=== PATIENT | male | born 1950 | race Caucasian/White ===

== ENCOUNTER 2024-09-10 11:14 | Emergency (ER) | payer MEDICARE, MEDICAID, SELFPAY ==
[2024-09-10 11:15] VITALS: BP 133/75; PULSE 94; TEMP 36.9; O2SAT 90; BMI 16.7
--- NOTE | 2024-09-10 11:23 | PC.NURSE ---
pt reports hx of COPD. chronic smoker. states no SOB, pt denies need or desire for oxygen application.
--- NOTE | 2024-09-10 11:27 | XR_ITS ---
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 Prior above-knee amputation and history of prostate cancer. COMPARISON: CT pelvis 03/19/2021 RIGHT HIP WITH AP PELVIS - 3 views AP view of the pelvis as well as AP and cross table lateral views of the right hip were obtained. There is osteopenia. There is prior amputation of the right lower extremity at the femoral shaft. No acute fracture or dislocation is identified. The hip joint spaces are symmetric. There is no significant arthritic disease. The SI joints are intact. There is levoscoliotic curvature and degenerative change at the lower imaged lumbar spine. Iliac artery stents are seen. The multiple hemostasis clips at the lower pelvis and in the groin region, greater on the right. A left lower quadrant colostomy is noted. XR/XR femur RT 2V IMPRESSION: NO ACUTE BONY INJURY. RIGHT FEMUR - 2 views AP and lateral views were obtained. There is osteopenia. Patient is status post amputation at the proximal to mid shaft of the femur. Chronic appearing irregularity is noted at the amputation site. No acute fracture or dislocation is identified. There is no prominent degenerative change. There are clips at the lower pelvis. There is an iliac artery stent. Atherosclerotic disease is seen. IMPRESSION: PRIOR ABOVE KNEE AMPUTATION. NO ACUTE BONY FINDINGS. Impression dictated by: Angela Clifford M.D. 09/10/2024 12:38 PM Dictation Location: [place] [address] Electronically authenticated by: [id number] Y Date: 09/10/2024 12:38
--- NOTE | 2024-09-10 11:27 | XR_ITS ---
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 Prior above-knee amputation and history of prostate cancer. COMPARISON: CT pelvis 03/19/2021 RIGHT HIP WITH AP PELVIS - 3 views AP view of the pelvis as well as AP and cross table lateral views of the right hip were obtained. There is osteopenia. There is prior amputation of the right lower extremity at the femoral shaft. No acute fracture or dislocation is identified. The hip joint spaces are symmetric. There is no significant arthritic disease. The SI joints are intact. There is levoscoliotic curvature and degenerative change at the lower imaged lumbar spine. Iliac artery stents are seen. The multiple hemostasis clips at the lower pelvis and in the groin region, greater on the right. A left lower quadrant colostomy is noted. XR/XR hip RT 2V w/ pelvis IMPRESSION: NO ACUTE BONY INJURY. RIGHT FEMUR - 2 views AP and lateral views were obtained. There is osteopenia. Patient is status post amputation at the proximal to mid shaft of the femur. Chronic appearing irregularity is noted at the amputation site. No acute fracture or dislocation is identified. There is no prominent degenerative change. There are clips at the lower pelvis. There is an iliac artery stent. Atherosclerotic disease is seen. IMPRESSION: PRIOR ABOVE KNEE AMPUTATION. NO ACUTE BONY FINDINGS. Impression dictated by: Angela Clifford M.D. 09/10/2024 12:38 PM Dictation Location: [place] [address] Electronically authenticated by: [id number] Y Date: 09/10/2024 12:38
--- NOTE | 2024-09-10 11:59 | PC.NURSE ---
pt to imaging via stretcher with [employer] at this time.
--- NOTE | 2024-09-10 12:12 | ED.GENADUL1 ---
HPI HPI - General Adult General Chief complaint: Extremity Injury, Lower Stated complaint: R LEG PAIN Time Seen by Provider: 09/10/24 11:26 Mode of arrival: ambulance History of Present Illness HPI narrative: Patient is a 74-year-old male who is presenting to the ER today with chief complaint of right stump pain. Patient was cutting the grass yesterday. Patient stated that he slid out of the lawnmower by accident. Patient says that he landed on his right leg. Patient has uncertain if he had a hyperflexion or hyperextension injury to the right thigh/hip. Patient did not hit his head. No blood thinners. No other acute injury. All systems are negative except as noted/marked. All systems reviewed and otherwise negative. Nurses note and vital signs reviewed and patient is not hypoxic. Patient smells of significant tobacco products. General: The patient appears well and in no apparent distress. Patient is resting comfortably on cart. Patient is not toxic, lethargic, or listless Skin: Warm, dry, no pallor noted. There is no rash noted. No petechiae, purpura. Head: Normocephalic, atraumatic Eye: Normal conjunctiva, no drainage, EOMI. PERRL Ears, Nose, Mouth, and Throat: oral mucosa is moist. Nares patent. Mouth without vesicles. Cardiovascular: Regular Rate and Rhythm, no murmur, gallop, rub Respiratory: Patient is in no distress, no accessory muscle use, lungs are clear to auscultation, no wheezing, rales or rhonchi Back: non-tender, GI: no tenderness Musculoskeletal: Patient has full range of motion of all of the extremities, no motor, sensory, or focal neurological deficits. Patient has a right AKA. He has no redness, ecchymosis, signs of hematoma. No abrasion or laceration. Patient does have full flexion extension internal/external rotation of right hip which is normal for him. Patient has mild to moderate tenderness to palpation to the distal aspect of the right lower extremity. No ecchymosis bruising hematomas. Neurological: A&O x4, normal speech Psychiatric: Cooperative Related Data Allergies Allergy/AdvReac Type Severity Reaction Status Date / Time morphine Allergy Mild Vomiting Verified 09/10/24 11:21 Opioid HPI Opioid Management Most Recent Opioid Data: Last Pain Scale 10 Today, 12:19 Last JUN Pain Assessment Today, 12:18 PFSH PFS Social History Little interest or pleasure in doing things: not at all Feeling down, depressed, or hopeless: not at all Exam Constitutional Vital Signs, click to edit/add: Last Vital Signs Temp 98.4 F 09/10/24 11:15 Pulse 70 09/10/24 12:52 Resp 18 09/10/24 12:52 BP 133/75 09/10/24 11:15 Pulse Ox 90 L 09/10/24 12:52 O2 Del Method Room Air 09/10/24 12:52 Course Vital Signs Vital signs: Vital Signs Temperature 98.4 F 09/10/24 11:15 Pulse Rate 94 H 09/10/24 11:15 Respiratory Rate 18 09/10/24 11:15 Blood Pressure 133/75 09/10/24 11:15 Pulse Oximetry 90 L 09/10/24 11:15 Oxygen Delivery Method Room Air 09/10/24 11:15 Temperature 98.4 F 09/10/24 11:15 Pulse Rate 70 09/10/24 12:52 Respiratory Rate 18 09/10/24 12:52 Blood Pressure 133/75 09/10/24 11:15 Pulse Oximetry 90 L 09/10/24 12:52 Oxygen Delivery Method Room Air 09/10/24 12:52 Medical Decision Making [facility] Narrative Medical decision making narrative: Patient seen and examined: Patient will have ice, Tylenol Motrin, x-ray Differential diagnosis includes but is not limited to: Contusion, right hip sprain, right hip fracture, right femur fracture Radiological studies: Please see the formal radiological report. Patient right hip x-ray and right femur x-ray shows no acute fracture dislocation or acute abnormality. Reevaluation: Patient was extremely happy x-ray shows no obvious signs of acute fracture. Shared decision making: I discussed with the patient the necessary laboratory findings and radiological findings. Social barriers to healthcare: There are no food insecurities, there is no issue with transportation, there are no insurance barriers. Disposition: I discussed with the patient to continue using Tylenol, Motrin, ice. Patient was ecstatic there is no obvious signs of fracture. Patient will continue symptomatic treatment at home. No question at discharge Discharge Plan Discharge Chief Complaint: Extremity Injury, Lower Clinical Impression: Contusion of leg, right Patient Disposition: Home, Self-Care Time of Disposition Decision: 12:35 Condition: Fair Print Language: Maori Instructions: Contusion in Adults (ED) Additional Instructions: You use ice 20 minutes on, 20 minutes off. Do not use heat for the next 3 to 5 days. Follow-up with PCP for any other acute concerns. Your x-ray showed no acute signs of fracture. Referrals: Karina Pearson NP [Primary Care Provider] - 1 week Discharge Date/Time: 09/10/24 12:54
[2024-09-10] MEDS: IBUPROFEN 600 MG TABLET PO (12:18)
[2024-09-10] MEDS: ACETAMINOPHEN 500 MG TABLET PO (12:19)
[2024-09-10 12:52] VITALS: PULSE 70; O2SAT 90
== END 2024-09-10 12:54 | disposition home or self-care (01) ==
PROVIDERS: Emergency Provider Emergency Medicine; PCP Nurse Practitioner Family
DX: S70.11XA Contusion of right thigh, initial encounter (principal); W18.30XA Fall on same level, unspecified, initial encounter; M79.651 Pain in right thigh; T87.89 Other complications of amputation stump
CPT/HCPCS: 73502; 73552; 99284

== ENCOUNTER 2025-03-28 15:37 | Emergency (ER) | payer MEDICARE, MEDICAID, SELFPAY ==
[2025-03-28] VITALS (35 sets, daily range): BP systolic 142–204; BP diastolic 71–131; PULSE 92–115; TEMP 36.4; O2SAT 77–100; BMI 15.3
--- NOTE | 2025-03-28 16:11 | ECG_ITS ---
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
--- NOTE | 2025-03-28 16:21 | ED_ITS ---
HPI HPI - General Adult General Chief complaint: Nausea/Vomiting/Diarrhea Stated complaint: VOMITING, NAUSEA Time Seen by Provider: 03/28/25 16:04 Source: patient Mode of arrival: Wheelchair Limitations: physical limitation and other Limitations comment: Armando stafford History of Present Illness HPI narrative: Patient is a 74-year-old male smoker with a right AK amputation and colostomy bag and history of prostatectomy after prostate cancer that presents with epigastric abdominal pain that started yesterday with nausea and dry heaving. Patient states that he has not actually vomited as he has not been able to keep down any fluid and has not been eating since the pain started. He has had multiple abdominal surgeries including his colectomy with colostomy bag that he required after radiation from his prostate cancer. He also has had a prostatectomy. He denies any fever, night sweats, or chills at home. He denies sick contacts. Related Data Previous Rx's ?Medication ?Instructions ?Recorded metoclopramide HCl 10 mg tablet 10 mg PO Q6H PRN nause a and 03/28/25 (Reglan) vomiting #14 tabs Allergies Allergy/AdvReac Type Severity Reaction Status Date / Time morphine Allergy Mild Vomiting Verified 09/10/24 11:21 Opioid HPI Opioid Management Most Recent Opioid Data: Last Pain Scale 10 09/10/24, 12:19 Review of Systems ROS Status of ROS 10 or more systems reviewed and unremark able except as noted in history and below PFSH PFSH Social History Little interest or pleasure in doing things: not at all Feeling down, depressed, or hopeless: not at all Exam Narrative Exam Narrative: General: No distress, nontoxic appearing, age-appropriate Skin: Warm, dry, no pallor. No rash. Head: Normocephalic, atraumatic. Neck: Supple, non-tender. Eye: Pupils are equal, round and EOMI. No scleral icterus. Ears, Nose, Mouth, and Throat: No nasal mucosal hypertrophy. Oral mucosa is moist, no posterior oropharynx erythema, uvula is mid-line Cardiovascular: Regular Rate and Rhythm without murmur, gallop or rub. Respiratory: No accessory muscle use or respiratory distress. Lungs are clear to auscultation, no wheezing, rales or rhonchi Chest Wall: no tenderness Musculoskeletal: Full ROM of all extremities, no calf or popliteal tenderness on the left, right [id number] amputation. GI: Abdomen is soft, non-distended, epigastric tenderness to palpation. No masses appreciated. No rebound, guarding, or rigidity noted. Neurological: A&O x4. No cranial nerve dysfunction observed. No truncal ataxia. Moves all extremities. Sensation intact. Psychiatric: Cooperative and interactive. Normal mood and affect. Constitutional Vital Signs, click to edit/add: Last Vital Signs Temp 97.6 F 03/28/25 15:58 Pulse 110 H 03/28/25 19:42 Resp 25 H 03/28/25 17:31 BP 168/97 H 03/28/25 19:48 Pulse Ox 93 L 03/28/25 18:01 O2 Del Method Room Air 03/28/25 15:58 Documenting provider has reviewed patient's vital signs: yes Course Vital Signs Vital signs: Vital Signs Temperature 97.6 F 03/28/25 15:58 Pulse Rate 100 H 03/28/25 15:58 Respiratory Rate 22 H 03/28/25 15:58 Blood Pressure 185/87 H 03/28/25 15:58 Pulse Oximetry 97 03/28/25 15:58 Oxygen Delivery Method Room Air 03/28/25 15:58 Temperature 97.6 F 03/28/25 15:58 Pulse Rate 110 H 03/28/25 19:42 Respiratory Rate 25 H 03/28/25 17:31 Blood Pressure 168/97 H 03/28/25 19:48 Pulse Oximetry 93 L 03/28/25 18:01 Oxygen Delivery Method Room Air 03/28/25 15:58 Medical Decision Making MDM Narrative Medical decision making narrative: 74-year-old male with history of leukemia, prior prostatectomy, pelvic radiation, partial colectomy with colostomy, and right AK amputation, presenting with acute-onset epigastric pain, nausea, and inability to tolerate PO intake. On arrival patient is nontoxic-appearing, appears to be uncomfortable, in no distress laying on ED cart. Blood pressure hypertensive 185/87, HR in the 90s, afebrile. Initial workup included ECG (NSR, no ischemic changes), serial troponins (both WNL, 19.8 and 23.7 respectively). HEART score is 4 (moderate risk): History 1 (moderately suspicious), ECG 0, Age 2 (>=65), Risk factors 1 (smoker), Troponin 0. Labs notable for leukocytosis (WBC 17.4), mild anemia (Hgb 10.7), hyponatremia (Na 131), hypokalemia (K 3.1), normal lipase, and UA without evidence of infection. CT abdomen/pelvis with IV contrast showed no bowel obstruction or acute intra- abdominal pathology. Lactate was normal at 1 mmol/L. IV placed on arrival. 1 L normal saline ordered at 500 mL/hour and patient received IV Zofran and Reglan 10 mg with improvement in nausea, and successfully passed a PO challenge with his home gabapentin 900mg that he requested for his phantom pain. I discussed results with patient and his and patient would like to be discharged and I think this is reasonable given he passed the p.o. challenge and his abdominal pain resolved on re-exam and patient reports that he is now hungry. Given improvement, normal imaging, stable vitals, ability to tolerate PO, and absence of acute surgical or cardiac pathology, patient is safe for discharge with instructions for PO antiemetics and strict return precautions. Differential Diagnosis Differential Diagnosis: ACS, SBO, pancreatitis, cholecystitis Lab Data Lab results reviewed: Yes I reviewed the patient's lab results Labs: Lab Results 03/28/25 03/28/25 03/28/25 Range/Units 16:15 17:15 18:09 WBC 17.4 H (4.0-11.0) 10^3/uL RBC 3.04 L (4.70-6.10) 10^6/uL Hgb 10.7 L (14.0-18.0) g/dL Hct 31.3 L (42.0-54.0) % MCV 103.0 H (80.0-94.0) fL MCH 35.2 H (25.9-34.0) pg MCHC 34.2 (29.9-35.2) g/dL RDW 15.6 H (11.0-15.0) % Plt Count 133 L (150-450) 10^3/uL MPV 10.3 (9.5-13.5) fL Seg Neuts % (Manual) 79.0 H (43.0-75.0) Lymphocytes % (Manual) 3.0 L (20.5-60.0) % Monocytes % (Manual) 17.0 H (1.7-12.0) % Eosinophils % (Manual) 1.0 (0.9-7.0) % Basophils % (Manual) 0.0 L (0.2-2.0) % Neutrophils # (Manual) 13.74 H (1.4-6.5) 10^3/uL Lymphocytes # (Manual) 0.52 L (1.20-3.80) 10^3/uL Monocytes # (Manual) 2.95 H (0.30-0.80) 10^3/uL Eosinophils # (Manual) 0.17 (0.00-0.70) 10^3/uL Basophils # (Manual) 0.00 (0.00-0.10) 10^3/uL Macrocytosis 1+ Sodium 131 L (136-145) mmol/L Potassium 3.1 L (3.5-5.1) mmol/L Chloride 95 L (98-107) mmol/L Carbon Dioxide 24.5 (21.0-32.0) mmol/L Anion Gap 14.6 BUN 16.0 (7.0-18.0) mg/dL Creatinine 0.49 L (0.70-1.30) mg/dL Est GFR ( Amer) >60 (>=60 mL/min/1.73m^2) Est GFR (Non-Af Amer) >60 (>=60 mL/min/1.73m^2) BUN/Creatinine Ratio 32.7 Glucose 128 H (74-106) mg/dL Lactate 1.0 (0.4-2.0) mmol/L Calcium 9.0 (8.5-10.1) mg/dL Total Bilirubin 0.4 (0.2-1.0) mg/dL AST 11 L (15-37) U/L ALT 7 L (16-63) U/L Alkaline Phosphatase 83 (46-116) U/L Troponin I High Sens 19.8 23.7 (4.0-76.1) pg/mL Total Protein 7.6 (6.4-8.2) g/dL Albumin 3.7 (3.4-5.0) g/dL Globulin 3.9 g/dL Albumin/Globulin Ratio 0.9 Lipase 23.0 (16.0-77.0) U/L Urine Color Yellow (YELLOW) Urine Clarity Clear (CLEAR) Urine pH 6.0 (5.0-9.0) Ur Specific [place] 1.025 (1.005-1.025) Urine Protein 30 A (NEG/TRACE) mg/dL Urine Glucose (UA) Negative (NEGATIVE) mg/dL Urine Ketones 15 A (NEGATIVE) mg/dL Urine Occult Blood Negative (NEGATIVE) Urine Nitrite Negative (NEGATIVE) Urine Bilirubin Negative (NEGATIVE) Urine Urobilinogen 1.0 (0.2-1.0) EU/dL Ur Leukocyte Esterase Negative (NEGATIVE) Urine RBC 0-2 (0-2) #/HPF Urine WBC 0-2 A (NONE SEEN) #/HPF Ur Squamous Epith Cells Rare (NONE/RARE) #/LPF Urine Crystals None seen (None Seen) #/HPF Urine Bacteria Trace A (NONE SEEN) #/HPF Urine Casts None seen (NONE SEEN) #/LPF Urine Mucus Trace A (NONE SEEN) Ur Culture Indicated? No Imaging Data CT scan - abdomen: Attestation: I have reviewed the pertinent imaging results. Radiologist's impression: ITS Impressions Abdomen/Pelvis CT 03/28/25 17:05 IMPRESSION: No bowel obstruction or obstructive uropathy. There is evidence of prior partial colectomy with colostomy in the left lower quadrant. Additional chronic findings are noted as above. Impression dictated by: Rob Pierce M.D. 03/28/2025 5:59 PM Dictation Location: [place] [address] Electronically authenticated by: [id number] Y Date: 03/28/2025 17:59 ECG Data Attestation: ?I have reviewed the pertinent ECG results. Discharge Plan Discharge Chief Complaint: Nausea/Vomiting/Diarrhea Clinical Impression: Nausea & vomiting, Dehydration Patient Disposition: Home, Self-Care Time of Disposition Decision: 19:38 Condition: Good Mode of Transportation: Private Vehicle Prescriptions / Home Meds: New metoclopramide HCl [Reglan] 10 mg tablet 10 mg PO Q6H PRN (Reason: nausea and vomiting) Qty: 14 0RF Print Language: Tajik Instructions: Acute Nausea and Vomiting (ED) Additional Instructions: Diet * Start with small, bland meals (toast, crackers, broth) * Advance diet as tolerated * Avoid alcohol, caffeine, NSAIDs until symptoms resolve Activity * Resume usual activity as tolerated * Rest if fatigued * Ambulate carefully to avoid falls, especially if taking gabapentin or antiemetics Red Flag / Return Precautions Call 911 or return to ER immediately if you develop: * Severe or worsening abdominal pain * Persistent vomiting or inability to tolerate liquids/foods * Black, tarry, or bloody stools * Fever, chills, or confusion * Chest pain or shortness of breath * Decreased colostomy output or abdominal distension Follow-up * Primary care physician / hematology for leukemia follow-up * Within 1?3 days if unable to maintain oral intake or nausea returns Referrals: Karina Pearson NP [Primary Care Provider] - 1 week Discharge Date/Time: 03/28/25 19:55
[2025-03-28] MEDS: 0.9 % SODIUM CHLORIDE 1,000 ML 500 ML IV (16:24)
[2025-03-28 16:32] LABS: Hematocrit 31.3 % (42.0-54.0); Hemoglobin 10.7 g/dL (14.0-18.0); Mean Corpuscular HGB Conc 34.2 g/dL (29.9-35.2); Mean Corpuscular Hemoglobin 35.2 pg (25.9-34.0); Mean Corpuscular Volume 103.0 fL (80.0-94.0); Platelet Count 133 10^3/uL (150-450); Red Blood Count 3.04 10^6/uL (4.70-6.10); White Blood Count 17.4 10^3/uL (4.0-11.0)
[2025-03-28] MEDS: METOCLOPRAMIDE HCL 10 MG/2 ML VIAL IVP (16:41)
[2025-03-28 16:50] LABS: Alanine Aminotransferase 7 U/L (16-63); Albumin Globulin Ratio 0.9; Albumin Level 3.7 g/dL (3.4-5.0); Alkaline Phosphatase 83 U/L (46-116); Anion Gap 14.6; Aspartate Amino Transferase 11 U/L (15-37); Blood Urea Nitrogen 16.0 mg/dL (7.0-18.0); Calcium 9.0 mg/dL (8.5-10.1); Carbon Dioxide 24.5 mmol/L (21.0-32.0); Chloride 95 mmol/L (98-107); Estimated GFR (African America >60 (>=60 mL/min/1.73m^2); Estimated GFR (Non-African Ame >60 (>=60 mL/min/1.73m^2); Globulin 3.9 g/dL; Glucose 128 mg/dL (74-106); Lipase 23.0 U/L (16.0-77.0); Potassium 3.1 mmol/L (3.5-5.1); Sodium 131 mmol/L (136-145); Total Protein 7.6 g/dL (6.4-8.2)
--- NOTE | 2025-03-28 17:05 | CT_ITS ---
[address] [address] Patient Name: EMA DELCID MRN: [id number] date: 1950 Sex: M Assigned Patient Location: ER Current Patient Location: [facility] Accession/Order Number: [id number] Exam Date: 03/28/2025 17:00 Report Date: 03/28/2025 17:59 At the request of: NICOLE MARTINEZ Procedure: CT abdomen pelvis w con CT abdomen pelvis w con 03/28/2025 5:06 PM SIGNS AND SYMPTOMS: Abdominal pain, nausea and vomiting, leukocytosis, history of prostate cancer and partial colectomy TECHNIQUE: Multidetector ct axial images of the abdomen and pelvis were obtained with IV contrast. Multiplanar reformats were performed and reviewed to further define anatomy and possible pathology. CT was performed with one or more of the following dose reduction techniques: Automated exposure control, adjustment of the mA and/or kV according to patient size, or use of iterative reconstruction technique. COMPARISON: 03/19/2021 FINDINGS: Lower Chest: There is chronic bronchiectasis in the lung bases with areas of dependent atelectasis. ABDOMEN: Liver: Within normal limits. Bile Ducts: Normal caliber. Gallbladder: No calcified gallstones. Normal caliber wall. Pancreas: Within normal limits. Spleen: Within normal limits. Adrenals: Within normal limits. Kidneys: There is a simple cyst in the right renal cortex requiring no further follow-up. There is renal cortical atrophy anteriorly on the left which is new when compared to the prior exam. Pelvis: Reproductive Organs: No pelvic masses. Ureters: Within normal limits. Bladder: Within normal limits. Bowel: There is evidence of previous partial colectomy with a colostomy in the left lower quadrant. There is no evidence of bowel obstruction. Mesenteric Lymph Nodes: No enlarged mesenteric lymph nodes. Peritoneum: No ascites or free air, no fluid collection. Vessels: Atherosclerotic changes are noted in the abdominal aorta and its branches. There is evidence of prior stenting of the right common iliac and external iliac arteries. Retroperitoneum: Within normal limits. Abdominal Wall: There is a colostomy in the left lower quadrant similar to the prior exam. Bones: Degenerative changes are noted in the thoracolumbar spine as well as the hips and sacroiliac joints. There is a levoconvex curvature of the lumbar spine. CT/CT abdomen pelvis w con IMPRESSION: No bowel obstruction or obstructive uropathy. There is evidence of prior partial colectomy with colostomy in the left lower quadrant. Additional chronic findings are noted as above. Impression dictated by: Rob Pierce M.D. 03/28/2025 5:59 PM Dictation Location: [place] [address] Electronically authenticated by: [id number] Y Date: 03/28/2025 17:59
[2025-03-28 17:13] LABS: Basophils Abs Manual 0.00 10^3/uL (0.00-0.10); Basophils Percent Manual 0.0 % (0.2-2.0); Eosinophils Absolute Manual 0.17 10^3/uL (0.00-0.70); Eosinophils Percent Manual 1.0 % (0.9-7.0); Lymphocytes Absolute Manual 0.52 10^3/uL (1.20-3.80); Lymphocytes Percent Manual 3.0 % (20.5-60.0); Monocytes Absolute Manual 2.95 10^3/uL (0.30-0.80); Monocytes Percent Manual 17.0 % (1.7-12.0); Segmented Neut Absolute Manual 13.74 10^3/uL (1.4-6.5); Segmented Neutrophils % Manual 79.0 (43.0-75.0)
[2025-03-28 17:15] LABS: Macrocytosis 1+
[2025-03-28 17:20] LABS: Glucose Urine UA NEGATIVE (NEGATIVE)
[2025-03-28 17:26] LABS: Lactate/Lactic Acid 1.0 mmol/L (0.4-2.0)
[2025-03-28 17:26] LABS: Cast Seen? NONE SEEN #/LPF (NONE SEEN); Crystals Seen? None Seen #/HPF (None Seen); Urine Culture Indicated NO
[2025-03-28] MEDS: GABAPENTIN 300 MG CAPSULE 900 MG PO (18:24)
--- NOTE | 2025-03-28 18:26 | PC.NURSE ---
pt admits to feeling better at this time. oral challenge started
--- NOTE | 2025-03-28 18:56 | PC.NURSE ---
pt able keep down water and states nausea is better
[2025-03-28] MEDS: METOCLOPRAMIDE HCL 10 MG/2 ML VIAL 5 MG IVP (19:44)
== END 2025-03-28 19:55 | disposition home or self-care (01) ==
PROVIDERS: Physician Assistant; Emergency Provider Emergency Medicine; PCP Nurse Practitioner Family
DX: E86.0 Dehydration (principal); R11.2 Nausea with vomiting, unspecified; F17.200 Nicotine dependence, unspecified, uncomplicated; Z85.46 Personal history of malignant neoplasm of prostate; Z90.79 Acquired absence of other genital organ(s); Z93.3 Colostomy status; Z89.611 Acquired absence of right leg above knee; Z90.49 Acquired absence of other specified parts of digestive tract; Z85.6 Personal history of leukemia
CPT/HCPCS: 36415; 74177; 80053; 81001; 83605; 83690; 84484; 85007; 85027; 93005; 96361; 96374; 96375; 96376; 99284; J2405; J2765; Q9967